=== PATIENT | female | born 1965 | race American Indian/Alaskan Native ===

== ENCOUNTER 2019-04-21 20:59 | Emergency (ER) | payer OTHER ==
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
[2019-04-22] MEDS ORDERED: TORADOL IM ONE (00:35)
[2019-04-22] MEDS ORDERED: FLEXERIL PO ONE (00:35)
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
[2019-04-22 01:47] VITALS: BP 147/79
== END 2019-04-22 01:46 | disposition home or self-care (01) ==
LOC: ED 20:59
DX: S39.012A Strain of muscle, fascia and tendon of lower back, initial encounter (principal); M54.2 Cervicalgia; E11.9 Type 2 diabetes mellitus without complications; Z79.899 Other long term (current) drug therapy; V89.2XXA Person injured in unspecified motor-vehicle accident, traffic, initial encounter; Y93.89 Activity, other specified; Y92.410 Unspecified street and highway as the place of occurrence of the external cause; Y99.8 Other external cause status
CPT/HCPCS: 72040; 72100; 96372; 99283; J1885